=== PATIENT | male | born 1950 | race Caucasian/White ===

== ENCOUNTER 2017-08-05 14:09 | Emergency (ER) | payer MEDICARE, OTHER ==
[2017-08-05] MEDS ORDERED: PROPARACAINE 0.5% OPHTH DROPS 15 ML EACHEYE STA (15:14)
[2017-08-05] MEDS ORDERED: levoFLOXacin 0.5% OPHTH DROPS 5 ML RIGHTEYE STA (15:23)
--- NOTE | 2017-08-05 15:26 | ED Physician Documentation ---
PD HPI OPHTHO - Stated complaint Stated Complaint: RED SWOLLEN EYE - Chief complaint Chief Complaint: Heent - History obtained from History obtained from: Patient - History of Present Illness Timing - onset: Other (Noncontact lens wearer who was playing golf today and got some mild in his eye and developed purulent drainage after that without visual deficit.) Review of Systems Constitutional: denies: Fever, Chills Eyes: reports: Discharge, Irritation. denies: Loss of vision, Decreased vision , Photophobia Ears: denies: Ear pain Nose: denies: Rhinorrhea / runny nose, Congestion PD PAST MEDICAL HISTORY - Past Medical History Past Medical History: Yes Musculoskeletal: Chronic back pain - Past Surgical History Past Surgical History: Yes Ortho: Hip replacement, Rotator cuff repair HEENT: Tonsil/Adenoidectomy - Present Medications Home Medications: Ambulatory Orders Medication Instructions Recorded Confirmed No Known Home Medications [No 08/05/17 08/05/17 Known Home Medications] - Allergies Allergies/Adverse Reactions: Allergies Allergy/AdvReac Type Severity Reaction Status Date / Time No Known Drug Allergies Allergy Verified 08/05/17 15:16 - Social History Does the pt smoke?: No Smoking Status: Never smoker Does the pt have substance abuse?: No - Immunizations Immunizations are current?: Yes - POLST Patient has POLST: No PD ED PE NORMAL - Vitals Vital signs reviewed: Yes - General General: Alert and oriented X 3, No acute distress - HEENT HEENT: Other (He has conjunctivitis of the right eye with purulent drainage which is cultured. No fluorescein uptake.) - Neck Neck: Supple, no meningeal sign, No bony TTP - Neuro Neuro: Alert and oriented X 3, Normal speech - Psych Psych: Normal mood, Normal affect Results - Vitals Vitals: Vital Signs - 24 hr 08/05/17 08/05/17 14:24 15:38 Temperature 36.7 C Heart Rate 74 78 Respiratory 18 18 Rate Blood Pressure 142/74 H 146/91 H O2 Saturation 94 Oxygen O2 Source Room air PD MEDICAL DECISION MAKING - ED course ED course: He has purulent conjunctivitis on the right, I suspect the history of getting mud in his eye is a non sequitur/red solano because of the time course and lack of fluorescein uptake. Departure - Departure Disposition: 01 Home, Self Care Clinical Impression: Conjunctivitis Qualifiers: Conjunctivitis type: acute Acute conjunctivitis type: bacterial Laterality: right Qualified Code(s): H10.31 - Unspecified acute conjunctivitis, right eye Condition: Good Record reviewed to determine appropriate education?: Yes Instructions: ED Conjunctivitis Bacterial Follow-Up: Dominik Hubbard MD [Provider Admit Priv/Credential] - Comments: Use the eyedrop 4 times a day for the next 5 days. Return if worse. Follow-up with the eye doctor if not better the day after New Year's. Let them know we did a culture of your eye. Your blood pressure was elevated today on check into the emergency department. This does not mean that you have hypertension, it is a common phenomenon to come to the emergency department and have elevated blood pressure. I recommend that you see your primary care physician within the week to have it rechecked when you are feeling better. Discharge Date/Time: 08/05/17 15:38
[2017-08-05 15:40] VITALS: BP 146/91
== END 2017-08-05 15:38 | disposition home or self-care (01) ==
LOC: ED 14:09
DX: H10.31 Unspecified acute conjunctivitis, right eye (principal); R03.0 Elevated blood-pressure reading, without diagnosis of hypertension; Z96.649 Presence of unspecified artificial hip joint
CPT/HCPCS: 87070; 99283; A9270; J3490

== ENCOUNTER 2018-01-31 20:57 | Emergency (ER) | payer MEDICARE, OTHER ==
[2018-01-31 21:09] VITALS: BP 148/81
[2018-01-31] MEDS ORDERED: PROPARACAINE 0.5% OPHTH DROPS 15 ML RIGHTEYE STA (21:47)
[2018-01-31] MEDS ORDERED: POLYMYXIN B/TRIMETH OPHTH DROPS RIGHTEYE STA (22:01)
--- NOTE | 2018-01-31 22:03 | ED Physician Documentation ---
PD HPI OPHTHO - Stated complaint Stated Complaint: STICK TO RT EYE - Chief complaint Chief Complaint: Heent - History obtained from History obtained from: Patient - History of Present Illness Timing - onset: Yesterday Timing - duration: Days (2) Timing - details: Abrupt onset Pain level max: 3 Pain level now: 2 Location: Right Quality / character: Aching Associated symptoms: Redness, Swelling, Tearing (yellow drainage) Contributing factors: Blunt trauma (stick vs eye yesterday). No: Wears glasses Similar symptoms before: Has not had sx before Recently seen: Not recently seen Review of Systems Constitutional: denies: Fever Eyes: reports: Discharge. denies: Decreased vision, Photophobia Ears: denies: Ear pain Nose: denies: Rhinorrhea / runny nose PD PAST MEDICAL HISTORY - Past Medical History Past Medical History: Yes Musculoskeletal: Chronic back pain - Past Surgical History Past Surgical History: Yes Ortho: Hip replacement, Rotator cuff repair HEENT: Tonsil/Adenoidectomy - Present Medications Home Medications: Ambulatory Orders Medication Instructions Recorded Confirmed Polymyxin B/Trimeth Ophth Drop 1 drops RIGHTEYE Q3H 7 Days #1 01/31/18 [Polytrim Ophth Drops] bottle - Allergies Allergies/Adverse Reactions: Allergies Allergy/AdvReac Type Severity Reaction Status Date / Time No Known Drug Allergies Allergy Verified 08/05/17 15:16 - Social History Does the pt smoke?: No Smoking Status: Never smoker Does the pt drink ETOH?: No Does the pt have substance abuse?: No - Immunizations Immunizations are current?: Yes Immunizations: TDAP current <10years - POLST Patient has POLST: No PD ED PE NORMAL - Vitals Vital signs reviewed: Yes - General General: Alert and oriented X 3, No acute distress - HEENT HEENT: Moist mucous membranes, Other (Right eye - Yellow drainage. Fluorescein uptake on the lower aspect of the cornea. eyelids everted with no foreign bodies visible. Negative Lars sign.) - Derm Derm: Warm and dry - Neuro Neuro: Alert and oriented X 3 Results - Vitals Vitals: Oxygen O2 Source Room air PD MEDICAL DECISION MAKING - ED course Complexity details: considered differential, d/w patient ED course: Patient is a 67-year-old male with a right eye conjunctivitis. No evidence of globe rupture. No retained foreign body. Will place on ophthalmic antibiotics and follow-up closely with his doctor. He does not wear contact lenses. Patient counseled regarding signs and symptoms for which I believe and urgent re -evaluation would be necessary. Patient with good understanding of and agreement to plan and is comfortable going home at this time This document was made in part using voice recognition software. While efforts are made to proofread this document, sound alike and grammatical errors may occur. - Sepsis Event Vital Signs: Oxygen O2 Source Room air Departure - Departure Disposition: Home, Self Care Clinical Impression: Conjunctivitis Qualifiers: Conjunctivitis type: acute Acute conjunctivitis type: bacterial Laterality: right Qualified Code(s): H10.31 - Unspecified acute conjunctivitis, right eye Condition: Good Instructions: ED Conjunctivitis Bacterial Follow-Up: James Adam MD [Primary Care Provider] - Within 1 week Prescriptions: Polymyxin B/Trimeth Ophth Drop [Polytrim Ophth Drops] 1 drops RIGHTEYE Q3H 7 Days #1 bottle Comments: Return if you worsen. Use the antibiotic drops as prescribed. Discharge Date/Time: 01/31/18 22:09
== END 2018-01-31 22:09 | disposition home or self-care (01) ==
LOC: ED 20:57
DX: H10.31 Unspecified acute conjunctivitis, right eye (principal)
CPT/HCPCS: 99283; A9270; J3490

== ENCOUNTER 2019-04-06 14:05 | Emergency (ER) | payer MEDICARE, OTHER ==
[2019-04-06 14:13] VITALS: BP 156/81
[2019-04-06] MEDS ORDERED: BUFFERED LIDOCAINE 10 ML SYRINGE SUBQ STA (14:18)
--- NOTE | 2019-04-06 14:19 | ED Physician Documentation ---
PD HPI SKIN - Stated complaint Stated Complaint: BUMP ON LT EAR - Chief complaint Chief Complaint: Wound - History obtained from History obtained from: Patient - History of Present Illness Timing - onset: Last night ([place] UTD. He took a fall 3 weeks ago and required 3 stitches on the tragus of his left ear. The stitches were removed about a week ago but starting last night he is noticed a lump in that area. It is not painful. It is just annoying.) Review of Systems Constitutional: denies: Fever, Chills Ears: reports: Reviewed and negative Nose: reports: Reviewed and negative PD PAST MEDICAL HISTORY - Past Medical History Musculoskeletal: Chronic back pain - Past Surgical History Past Surgical History: Yes Ortho: Hip replacement, Rotator cuff repair HEENT: Tonsil/Adenoidectomy - Present Medications Home Medications: Ambulatory Orders Medication Instructions Recorded Confirmed Polymyxin B/Trimeth Ophth Drop 1 drops RIGHTEYE Q3H 7 Days #1 01/31/18 [Polytrim Ophth Drops] bottle - Allergies Allergies/Adverse Reactions: Allergies Allergy/AdvReac Type Severity Reaction Status Date / Time No Known Drug Allergies Allergy Verified 04/06/19 14:08 - Social History Does the pt smoke?: No Smoking Status: Never smoker Does the pt drink ETOH?: No Does the pt have substance abuse?: No - Immunizations Immunizations are current?: Yes Immunizations: TDAP current <10years - POLST Patient has POLST: No PD ED PE NORMAL - Vitals Vital signs reviewed: Yes - General General: Alert and oriented X 3, No acute distress - HEENT HEENT: Other (There is a little wound dehiscence on the tragus with a small piece of skin measuring about 3 management millimeters around its kind of hanging off.) - Neck Neck: Supple, no meningeal sign, No bony TTP - Neuro Neuro: Alert and oriented X 3, Normal speech Results - Vitals Vitals: Vital Signs - 24 hr 04/06/19 14:08 Temperature 37.1 C Heart Rate 63 Respiratory 17 Rate Blood Pressure 156/81 H O2 Saturation 95 Oxygen O2 Source Room air Procedures - General procedure General procedure: The tragus was anesthetized with buffered lidocaine and then prepped with Hibiclens, the extra piece of skin was snipped off and then cauterized at the base with silver nitrate. Departure - Departure Disposition: 01 Home, Self Care Clinical Impression: Skin lesion of left ear Condition: Good Record reviewed to determine appropriate education?: Yes Instructions: ED Wound Care Comments: Your blood pressure was elevated today on check into the emergency department. This does not mean that you have hypertension, it is a common phenomenon to come to the emergency department and have elevated blood pressure. I recommend that you see your primary care physician within the week to have it rechecked when you are feeling better.
== END 2019-04-06 14:57 | disposition home or self-care (01) ==
LOC: ED 14:05
DX: L98.9 Disorder of the skin and subcutaneous tissue, unspecified (principal); R03.0 Elevated blood-pressure reading, without diagnosis of hypertension

== ENCOUNTER 2020-05-16 08:00 | Outpatient (CLI) | payer MEDICARE ==
[2020-05-16 17:57] LABS: H. PYLORIS ANTIGEN STL POSITIVE (Negative)
== END 2020-05-16 23:59 ==
LOC: LAB.R 08:00
PROVIDERS: ATTEND Internal Medicine Gastroenterology
DX: A04.8 Other specified bacterial intestinal infections (principal)
CPT/HCPCS: 87338

== ENCOUNTER 2020-06-10 08:00 | Outpatient (CLI) | payer MEDICARE ==
[2020-07-10 20:08] LABS: H. PYLORIS ANTIGEN STL NEGATIVE (Negative)
== END 2020-06-10 23:59 | disposition home or self-care (01) ==
LOC: LAB.R 08:00
PROVIDERS: ATTEND Internal Medicine Gastroenterology
DX: A04.8 Other specified bacterial intestinal infections (principal)
CPT/HCPCS: 87338

== ENCOUNTER 2020-06-17 07:00 | Outpatient (CLI) | payer MEDICARE | END 2020-06-17 23:59 | disposition home or self-care (01) | LOC: COV 07:00 | PROVIDERS: ATTEND Family Medicine | DX: R05 Cough (principal); R06.02 Shortness of breath; M79.10 Myalgia, unspecified site; R53.83 Other fatigue; R19.7 Diarrhea, unspecified; R09.81 Nasal congestion; Z20.828 Contact with and (suspected) exposure to other viral communicable diseases ==

== ENCOUNTER 2020-07-11 16:54 | Outpatient (CLI) | payer MEDICARE ==
--- NOTE | 2020-07-13 09:28 | MRI Report ---
PROCEDURE: Cervical Spine W/O INDICATIONS: C7 RADICULAR PAIN TECHNIQUE: Noncontrast sagittal T1 spin echo and T2 fast spin echo, sagittal STIR, foraminal oblique sagittal T2 fast spin echo, and axial gradient echo or T2 fast spin echo through the cervical spine. COMPARISON: None. FINDINGS: Image quality: Excellent. Alignment and Curvature: There is normal bony alignment. Bone Marrow: Mild degenerative signal heterogeneity in the endplates at the C6-7 level. Marrow demon strates otherwise normal overall signal. Spinal Cord: Visualized spinal cord has normal size and signal. No cerebellar tonsillar herniation. Paraspinous Soft Tissues: No paravertebral masses. Prevertebral soft tissues are normal in thicknes s. C2-C3: Normal in appearance. C3-C4: Mild posterior disc osteophyte. Small broad-based right foraminal disc bulge and mild right facet arthropathy causing mild right foraminal narrowing. C4-C5: Moderate bilateral facet arthropathy. Mild broad-based posterior disc osteophyte slightly dis torting the central canal shape. Mild bilateral foraminal narrowing due to facet degeneration. C5-C6: Moderate disc height loss, desiccation, and circumferential disc osteophyte, particularly rig ht anterolateral. Additionally, there is a broad-based posterior disc osteophyte effacing the anterio r CSF space and flattening cord shape. Broad-based disc protrusion obliterates the right neural bina en. Mild left neural foraminal narrowing. Moderate bilateral facet arthropathy. C6-C7: Mild disc height loss and desiccation with mild broad-based posterior disc osteophyte complex . Mild central canal and bilateral foraminal narrowing. C7-T1: Moderate right facet degeneration. Otherwise normal appearance. IMPRESSION: 1. Disc protrusion at C5-6 obliterates the right neural foramen and likely causes right C6 radiculopa thy. 2. C5-6 posterior disc osteophyte causes moderate central canal stenosis. 3. Mild degenerative changes elsewhere in the cervical spine. Reviewed by: Maria Fernanda Edmond MD on 07/13/2020 9:27 AM PST Approved by: Maria Fernanda Edmond MD on 07/13/2020 9:27 AM PST Station ID: [id number]
== END 2020-07-11 16:55 | disposition home or self-care (01) ==
LOC: DI 16:54
PROVIDERS: ATTEND Specialist
DX: M50.222 Other cervical disc displacement at C5-C6 level (principal); M25.78 Osteophyte, vertebrae; M48.02 Spinal stenosis, cervical region; M47.812 Spondylosis without myelopathy or radiculopathy, cervical region; M47.813 Spondylosis without myelopathy or radiculopathy, cervicothoracic region
CPT/HCPCS: 72141

== ENCOUNTER 2020-09-09 15:30 | Emergency (ER) | payer MEDICARE ==
--- NOTE | 2020-09-09 15:38 | ED Physician Documentation ---
PD HPI HEENT - Stated complaint Stated Complaint: THROAT PX - History obtained from History obtained from: Patient - History of Present Illness Timing - onset: How many hours ago (6), Today Timing - duration: Hours (6) Timing - details: Abrupt onset (The patient states he was feeling well until taking his usual morning medicines. He takes them all at once with water typically. This morning they felt like some got stuck in his throat and he had a gagging and then vomiting of what he thought was all the pills. Persistent feeling of irritation.), Still present (has worsened pain through the day and now hurting sharp pain with swallowing. Able to take fluids. Has not eaten foods.) Location: Throat (throat at level of cricoid cartilage. Slight hoarseness of vo ice. No pain in chest/esophagus.) Worsens: Swalllowing Associated symptoms: No: Fever, Congestion, Facial swelling, Headache, Cough Similar symptoms before: Has not had sx before Recently seen: Not recently seen Review of Systems Constitutional: denies: Fever, Chills Nose: denies: Rhinorrhea / runny nose, Congestion Throat: reports: Sore throat Respiratory: denies: Dyspnea, Cough GI: denies: Abdominal Pain, Nausea, Vomiting Skin: denies: Rash Neurologic: denies: Generalized weakness, Near syncope PD PAST MEDICAL HISTORY - Past Medical History Cardiovascular: None Respiratory: Asthma Neuro: None Endocrine/Autoimmune: None GI: None : None HEENT: None Psych: None Musculoskeletal: Chronic back pain Derm: None - Past Surgical History Past Surgical History: Yes Ortho: Hip replacement, Rotator cuff repair HEENT: Tonsil/Adenoidectomy - Present Medications Home Medications: Ambulatory Orders Medication Instructions Recorded Confirmed Polymyxin B/Trimeth Ophth Drop 1 drops RIGHTEYE Q3H 7 Days #1 01/31/18 [Polytrim Ophth Drops] bottle HYDROcod/ACETAM 5/325 [[place] 5/325] 1 ea PO Q6H PRN #10 tablet 09/09/20 Lidocaine Viscous 2% [Xylocaine 5 ml PO Q4H PRN #100 ml 09/09/20 Viscous 2%] dexAMETHasone [Decadron] 4 mg PO DAILY #5 tablet 09/09/20 diphenhydrAMINE ELIXIR [Benadryl 12.5 mg PO Q4H PRN #120 ml 09/09/20 Elixir] - Allergies Allergies/Adverse Reactions: Allergies Allergy/AdvReac Type Severity Reaction Status Date / Time No Known Drug Allergies Allergy Verified 09/09/20 15:40 - Social History Does the pt smoke?: No Smoking Status: Never smoker Does the pt drink ETOH?: No Does the pt have substance abuse?: No - Immunizations Immunizations are current?: Yes Immunizations: TDAP current <10years - POLST Patient has POLST: No PD ED PE NORMAL - Vitals Vital signs reviewed: Yes - General General: Alert and oriented X 3, Well developed/nourished, Other (appears unco mfortable with swallowing. ) - HEENT HEENT: Ears normal, Moist mucous membranes, Other (normal appearance of lips, tongue, and uvula without edema. [place] Scope used to view just over the top of the tongue shows some visible inflammation posteriorly. No noted FB nor focal swelling. saw to just above valecula, not lower, due to gag reflex. ) - Neck Neck: Supple, no meningeal sign, No adenopathy, No bruit - Respiratory Respiratory: No respiratory distress, Clear bilaterally - Abdomen Abdomen: Soft, Non tender - Derm Derm: Normal color, Warm and dry - Extremities Extremities: No edema, No calf tenderness / cord - Neuro Neuro: Alert and oriented X 3, No motor deficit, Normal speech - Psych Psych: Normal mood. No: Normal affect (mildly anxious. ) Results - Vitals Vitals: Vital Signs - 24 hr 09/09/20 09/09/20 15:37 17:52 Temperature 36.8 C 36.9 C Heart Rate 68 60 Respiratory 22 18 Rate Blood Pressure 155/92 H 174/98 H O2 Saturation 94 97 Oxygen O2 Source Room air - Labs Labs: Laboratory Tests 09/09/20 09/09/20 16:16 16:16 WBC 10.5 RBC 4.82 Hgb 15.2 Hct 44.6 MCV 92.5 MCH 31.5 H MCHC 34.1 RDW 13.3 Plt Count 256 MPV 10.4 Neut # (Auto) 7.8 H Lymph # (Auto) 2.0 [place] # (Auto) 0.5 Eos # (Auto) 0.1 Baso # (Auto) 0.1 Absolute Nucleated RBC 0.00 Nucleated RBC % 0.0 Sodium 141 Potassium 4.1 Chloride 105 Carbon Dioxide 21 Anion Gap 15.0 H BUN 17 Creatinine 0.9 Estimated GFR (MDRD) 83 L Glucose 103 H Calcium 9.8 - Rads (name of study) neck CT soft tissue Radiology: Prelim report reviewed, EMP read contemporaneously (patent pharynx, no obvious FB. No focal edema. ), See rad report PD MEDICAL DECISION MAKING - ED course Complexity details: considered differential (eval for persistent FB of upper esophagus, pharynx. Try to visualize and get CT. If need, can try to get scope done. ), d/w patient Departure - Departure Disposition: 01 Home, Self Care Clinical Impression: Pharyngeal irritation Pharyngeal foreign body Qualifiers: Encounter type: initial encounter Qualified Code(s): T17.208A - Unspecified foreign body in pharynx causing other injury, initial encounter Condition: Stable Record reviewed to determine appropriate education?: Yes Prescriptions: diphenhydrAMINE ELIXIR [Benadryl Elixir] 12.5 mg PO Q4H PRN #120 ml PRN Reason: Pain dexAMETHasone [Decadron] 4 mg PO DAILY #5 tablet HYDROcod/ACETAM 5/325 [[place] 5/325] 1 ea PO Q6H PRN #10 tablet PRN Reason: Pain Lidocaine Viscous 2% [Xylocaine Viscous 2%] 5 ml PO Q4H PRN #100 ml PRN Reason: Pain Comments: No obvious residual foreign body or localized swelling seen on the CT. It did look like some irritation and mild general swelling of what I could see with the scope. I would anticipate this improving over the next day or so. Liquids only overnight and tomorrow morning. Use the lidocaine and Benadryl liquid as needed for numbing and discomfort. Add Tylenol or pain medicine as needed. Recheck if not improved well tomorrow and return if worsening. Discharge Date/Time: 09/09/20 18:45
[2020-09-09] MEDS ORDERED: SODIUM CHLORIDE 0.9% 1,000 ML IV STA ×2 (15:59→17:29)
[2020-09-09] MEDS ORDERED: LIDOCAINE VISCOUS 2% 15 ML UDC MM STA ×2 (15:59→17:29)
[2020-09-09] MEDS ORDERED: DEXAMETHASONE 10 MG/ML VIAL IVP STA (16:00)
[2020-09-09] MEDS ORDERED: diphenhydrAMINE ELIXIR 25 MG/10 ML UDC PO STA ×2 (16:00→17:29)
[2020-09-09] MEDS ORDERED: MORPHINE 2 MG/ML CARPUJECT IVP STA (16:00)
[2020-09-09] MEDS ORDERED: KETOROLAC 15 MG/ML VIAL IVP STA (16:00)
[2020-09-09 16:23] LABS: BASOPHILS # (AUTO) 0.1 10^3/uL (0.0-0.1); BASOPHILS % (AUTO) 0.6 %; EOSINOPHILS # (AUTO) 0.1 10^3/uL (0.0-0.7); EOSINOPHILS % (AUTO) 0.8 %; HGB - HEMOGLOBIN 15.2 g/dL (14.0-18.0); LYMPHOCYTES % (AUTO) 19.1 %; MEAN CORPUSCULAR HEMOGLOBIN 31.5 pg (27.0-31.0); MEAN CORPUSCULAR HGB CONC 34.1 g/dL (32.0-36.0); MEAN CORPUSCULAR VOLUME 92.5 fL (80.0-94.0); MEAN PLATELET VOLUME 10.4 fL (7.4-11.4); MONOCYTES # (AUTO) 0.5 10^3/uL (0.0-1.0); MONOCYTES % (AUTO) 4.5 %; NEUTROPHILS # (AUTO) 7.8 10^3/uL (1.5-6.6); NEUTROPHILS % (AUTO) 74.6 %; PLT - PLATELET COUNT 256 10^3/uL (130-450); RED BLOOD COUNT 4.82 10^6/uL (4.70-6.10); RED CELL DISTRIBUTION WIDTH 13.3 % (12.0-15.0); WHITE BLOOD COUNT 10.5 x10^3/uL (4.8-10.8)
[2020-09-09 16:36] LABS: CALCIUM 9.8 mg/dL (8.5-10.3); CREATININE 0.9 mg/dL (0.6-1.2)
[2020-09-09] MEDS ORDERED: IOVERSOL 320 100 ML VIAL IVP ONE ×2 (16:40→17:13)
[2020-09-09] MEDS ORDERED: HYDROmorphone 1 MG/ML CARPUJECT IVP STA (17:29)
[2020-09-09] MEDS ORDERED: MAG HYDROX/AL HYDROX/SIMETH 30 ML UDC PO STA (17:29)
[2020-09-09 17:53] VITALS: BP 174/98
--- NOTE | 2020-09-09 18:20 | CT Report ---
PROCEDURE: SOFT TISSUE NECK W INDICATIONS: feeling throat pain; pills this AM got stuck CONTRAST: IV CONTRAST: Optiray 320 ml: 100 PO CONTRAST: *NO PO CONTRAST TECHNIQUE: After the administration of intravenous contrast, 3.0 mm axial sections acquired from the sella to th e aortic arch. Additional oblique axial 3.0 mm sections acquired through the pharynx. 3 mm thick co leigh ann reformats were generated. For radiation dose reduction, the following was used: automated exp osure control, adjustment of mA and/or kV according to patient size. COMPARISON: MRI of cervical spine dated 07/11/2020. FINDINGS: Image quality: Excellent. Lymph nodes: No enlarged lymph nodes seen throughout the neck. Vessels: Visualized vasculature appears patent. Neck spaces: The oropharynx, nasopharynx, and pharynx demonstrate no mucosal lesions. The vocal cor ds, false vocal cords, pyriform sinuses, epiglottis, vallecula, and tongue base all appear normal. E xtramucosal spaces appear unremarkable. Glands: The parotid and submandibular glands appear normal. The thyroid is normal in size. Miscellaneous: Visualized brain and orbits appear normal. Lung apices appear clear. Superficial so ft tissues appear normal. Bones: No suspicious bony lesions. Visualized sinuses and mastoids appear unremarkable. Degenerati ve disc disease at C5-6 and C6-7 levels are seen. IMPRESSION: 1. No gross discrete neck soft tissue mass is noted. Airway is patent. 2. No adnexal soft tissue lymphadenopathy. Normal-appearing bilateral parotid glands, submandibular g lands glands and thyroid gland. 3. Degenerative disc disease in mid to lower cervical spine better evaluated on previous MRI study. Reviewed by: Taiwo Matute MD on 09/09/2020 5:18 PM [facility] Approved by: Taiwo Matute MD on 09/09/2020 5:18 PM [facility] Station ID: [id number]
--- NOTE | 2020-09-09 18:45 | ED Physician Documentation ---
ED Addendum - Addendum Addendum: 09/09/20 18:44 At the time of discharge, the patient coughed and out came a plastic of bring from his inhaler. Symptoms resolved. Tolerating p.o. without difficulty.
== END 2020-09-09 18:45 | disposition home or self-care (01) ==
LOC: ED 15:30
DX: T17.298A Other foreign object in pharynx causing other injury, initial encounter (principal); X58.XXXA Exposure to other specified factors, initial encounter
CPT/HCPCS: 36415; 70491; 80048; 85025; 96374; 96375; 99284; A9270; J1170; Q9967

== ENCOUNTER 2022-09-17 16:56 | Outpatient (CLI) | payer MEDICARE ==
--- NOTE | 2022-09-17 18:24 | XRAY Report ---
PROCEDURE: Shoulder 3 View RT INDICATIONS: RT SHOULDER PAIN TECHNIQUE: 3 views of the shoulder were acquired. COMPARISON: None. FINDINGS: Bones: No fractures or dislocations. No suspicious bony lesions. Visualized ribs appear intact. There is focal degenerative change seen of the acromioclavicular joint, with calcification and mild s ubacromial spurring. Milder degenerative changes are seen elsewhere. Soft tissues: No suspicious soft tissue calcifications. The visualized lung demonstrates a normal a ppearance. IMPRESSION: No acute plain film abnormality is seen. Focal acromioclavicular joint degenerative change noted. If it would be helpful for clinical management decision making, please consider a dedicated, schedule d shoulder MRI for further evaluation (assuming that there is no contraindication). Reviewed by: Gustabo Tobias MD on 09/17/2022 5:22 PM [facility] Approved by: Gustabo Tobias MD on 09/17/2022 5:22 PM [facility] Station ID: [id number]
== END 2022-09-17 16:57 | disposition home or self-care (01) ==
LOC: DI 16:56
PROVIDERS: ATTEND Family Medicine
DX: M19.011 Primary osteoarthritis, right shoulder (principal)

== ENCOUNTER 2022-10-12 08:16 | Outpatient (CLI) | payer MEDICARE ==
--- NOTE | 2022-10-12 15:54 | MRI Report ---
PROCEDURE: SHOULDER WO - RT INDICATIONS: RT SHOULDER PAIN TECHNIQUE: Noncontrast oblique coronal T2 fast spin echo with fat saturation, oblique sagittal T1 spin echo and T2 fast spin echo with fat saturation, axial T1 spin echo and T2 fast spin echo with fat saturation t hrough the shoulder. COMPARISON: Plain films dated 09/17/2022. FINDINGS: Image quality: Degraded by motion artifact. Rotator cuff: There is full-thickness tearing of the entire supraspinatus tendon with medial retracti on of the supraspinatus. There is low-grade partial thickness intrasubstance and articular surface te aring of the mid and anterior infraspinatus tendon at the humeral insertion site. Low-grade partial-t hickness articular surface tearing of the upper and mid subscapularis tendon at the humeral insertion site extending to the muscular tendinous junction. Teres minor is intact. No rotator cuff atrophy. Bones and bursae: No bone marrow contusions or fractures. There is moderate acromioclavicular joint degeneration. The acromion demonstrates conventional anatomy, without an os acromiale. No pathologi c subacromial/subdeltoid bursal fluid is present. Capsule and soft tissues: In the absence of intra-articular contrast, the labrum and glenohumeral li gaments appear intact. The long head of the biceps tendon demonstrates normal location and morpholog y. The rotator interval appears normal, without fibrosis. The coracohumeral ligament is normal in t hickness. IMPRESSION: 1. Full-thickness tearing of the supraspinatus tendon. 2. Low-grade partial-thickness tearing of the subscapularis and infraspinatus tendons. 3. Acromioclavicular joint osteoarthritis. Reviewed by: Sade Neri MD on 10/12/2022 3:53 PM PST Approved by: Sade Neri MD on 10/12/2022 3:53 PM PST Station ID: [id number]
== END 2022-10-12 08:17 | disposition home or self-care (01) ==
LOC: DI 08:16
PROVIDERS: ATTEND Family Medicine
DX: S46.021A Laceration of muscle(s) and tendon(s) of the rotator cuff of right shoulder, initial encounter (principal); M19.011 Primary osteoarthritis, right shoulder

== ENCOUNTER 2023-01-19 07:13 | Outpatient (CLI) | payer MEDICARE ==
--- NOTE | 2023-01-25 10:47 | MRI Report ---
PROCEDURE: LUMBAR SPINE WO INDICATIONS: LUMBAR SPONDYLOSIS TECHNIQUE: Noncontrast sagittal T1 spin echo and T2 fast echo, sagittal STIR, axial T1 and T2 fast spin echo thr ough the lumbar spine. In cases with scoliosis, additional coronal T2 fast spin echo may be performe d. COMPARISON: None. FINDINGS: Image quality: Excellent. Alignment and Curvature: Rightward curvature of the lumbar spine. Jessica Bone Marrow: Marrow is of normal overall signal. No acute vertebral body compression fractu res. Spinal Cord: Conus medullaris terminates at the L1 level. Visualized cord demonstrates normal signa l and size. Paraspinous Soft Tissues: No paravertebral masses. T12-L1: The disc is desiccated. No significant disc bulge. The foramina and central canal are patent . L1-L2: The disc is desiccated. Diffuse disc bulge and disc osteophytes. The central canal is paten t. L2-L3: Status post fusion at this level with disc spacers and posterior fixation. The foramina and central canal are patent. L3-L4: Status post fusion at this level with disc spacers and posterior fixation. The foramina and central canal are patent. L4-L5: Diffuse disc bulge with a right foraminal disc protrusion and disc osteophytes with facet hy pertrophy cause severe bilateral foraminal stenosis. The central canal is patent. L5-S1: Diffuse disc bulge and disc osteophytes with facet hypertrophy cause moderately severe bilat eral foraminal stenosis. The central canal is patent. IMPRESSION: 1. Postoperative changes of discectomy, laminectomy, and posterior fixation at L2-3 and L3-4. 2. Multilevel lumbar spondylosis causing foraminal and central canal stenosis as detailed above. 3. Stenosis is most severe at L4-5 and L5-S1. Reviewed by: Morris Diaz on 01/25/2023 10:46 AM PDT Approved by: Morris Diaz on 01/25/2023 10:46 AM PDT Station ID: [id number]
== END 2023-01-19 07:14 | disposition home or self-care (01) ==
LOC: DI 07:13
PROVIDERS: ATTEND Specialist
DX: M47.816 Spondylosis without myelopathy or radiculopathy, lumbar region (principal); M48.061 Spinal stenosis, lumbar region without neurogenic claudication; M47.817 Spondylosis without myelopathy or radiculopathy, lumbosacral region; M48.07 Spinal stenosis, lumbosacral region